=== PATIENT | male | born 1990 | race Caucasian/White ===

== ENCOUNTER 2020-12-02 00:40 | Emergency (ER) | payer OTHER ==
[2020-12-02 01:03] VITALS: BP 117/70; PULSE 100; TEMP 98.9; BMI 25.8
[2020-12-02] MEDS ORDERED: ACETAMINOPHEN 500 MG TABLET (FP) PO ONE (01:07)
[2020-12-02] MEDS ORDERED: ACETAMINOPHEN 325 MG TABLET (FP) ONE (01:12)
[2020-12-02] MEDS: ACETAMINOPHEN 325 MG TABLET (FP) PO ONE ×2 (01:41→01:48)
== END 2020-12-02 01:55 | disposition home or self-care (01) ==
LOC: JER 00:40
DX: U07.1 COVID-19 (principal)
CPT/HCPCS: 99283-25; C9803; U0003; U0005